=== PATIENT | male | born 1985 | race Caucasian/White ===

== ENCOUNTER 2020-02-11 01:07 | Emergency (ER) | payer BC ==
[~2020-02-11] VITALS: Ht 170.2 cm; Wt 72.6 kg
[2020-02-11 01:15] VITALS: BP 136/88
--- NOTE | 2020-02-11 01:15 | NUR ---
ED Nurse Note: Pt walked into ED from home for c/o RLQ abdominal pain onset three hours ago. Pt states pain is constant, nonradiating and is dull/pressure like in nature. Pt is aaox4, no cardiac or respiratory distress noted and ambulatory with steady gait.
[2020-02-11] MEDS ORDERED: Ketorolac 30mg Inj IV ONE (01:30)
--- NOTE | 2020-02-11 01:31 | Emergency Room Report ---
History of Present Illness General Chief Complaint: Abdominal Pain Source: Patient Present Illness HPI Is a 34-year-old male with a history of prior appendectomy. He presents with chief complaint of right flank pain. Onset for last 3 hours. Initially to the right upper back and rating down to the right lower quadrant area. No dysuria frequency. No hematuria. Comfrey nauseous and vomiting. No diarrhea. Pain is sharp in nature. 7 out of 10. Nothing made it better. Nothing made it worse. Allergies: Coded Allergies: AMOXICILLIN (Verified Allergy, Unknown, 02/11/20) PENICILLINS (Verified Allergy, Unknown, 02/11/20) Uncoded Allergies: PCN (Allergy, Unknown, 02/11/20) COVID-19 Screening Contact w/high risk pt: No Recent Travel to affected area: No Experienced COVID-19 symptoms?: No Patient History Past Medical History: see triage record, old chart reviewed Past Surgical History: appy Pertinent Family History: none Social History: Denies: smoking Immunizations: other Reviewed Nursing Documentation: PMH: Agreed; PSxH: Agreed Review of Systems Eye: Denies: eye pain, blurred vision ENT: Denies: ear pain, nose congestion, throat swelling Respiratory: Denies: cough, shortness of breath Cardiovascular: Denies: chest pain, palpitations Gastrointestinal: Reports: abdominal pain; Denies: diarrhea, nausea, vomiting Musculoskeletal: Denies: back pain, joint pain Skin: Denies: rash Neurological: Denies: headache, numbness Endocrine: Denies: increased thirst, increased urine Hematologic/Lymphatic: Denies: easy bruising All Other Systems: negative except mentioned in HPI Physical Exam Vital Signs Date Time Temp Pulse Resp B/P (MAP) Pulse Ox O2 Delivery O2 Flow Rate FiO2 02/11/20 01:12 98.1 82 18 136/88 (104) 97 Room Air Vitals normal Sp02 EP Interpretation: reviewed, normal General Appearance: well appearing, no apparent distress, alert Head: normocephalic, atraumatic Eyes: bilateral eye PERRL, bilateral eye EOMI ENT: hearing grossly normal, normal pharynx Neck: full range of motion, supple, no meningismus Respiratory: chest non-tender, lungs clear, normal breath sounds Cardiovascular #1: regular rate, rhythm, no murmur Gastrointestinal: normal bowel sounds, non tender, no mass, no organomegaly, no bruit, non-distended Musculoskeletal: back normal, normal range of motion, gait/station normal Psychiatric: mood/affect normal Medical Decision Making Diagnostic Impression: Primary Impression: Right ureteral calculus Additional Impression: ESME (acute kidney injury) ER Course Presents with right flank pain and CT scan showed a right ureteral stone. He does have evidence of ESME with elevated creatinine. Pain is well controlled here. No evidence of any infection. Will discharge home with urology follow- up. CT/MRI/US Diagnostic Results CT/MRI/US Diagnostic Results : Imaging Test Ordered: CT abdomen and pelvis Impression Read by radiologist. Mild right hydronephrosis due to a distal right ureteral stone measuring 5 mm. Last Vital Signs Date Time Temp Pulse Resp B/P (MAP) Pulse Ox O2 Delivery O2 Flow Rate FiO2 02/11/20 01:12 98.1 82 18 136/88 (104) 97 Room Air Status: improved Disposition: HOME, SELF-CARE Condition: Stable Scripts Tamsulosin HCl (Flomax) 0.4 Mg Cap.er.24h 0.4 MG ORAL DAILY, #30 CAP Prov: Bipin Ring MD 02/11/20 Hydrocodone Bit/Acetaminophen 5-325* (NORCO 5-325 TABLET*) 1 Each Tablet 1 TAB ORAL Q6H PRN for FOR PAIN, #20 TAB 0 Refills Prov: Bipin Ring MD 02/11/20 Additional Instructions: Increase fluids. Avoid carbonated drinks. Follow-up with your doctor in 7 days. You may need a referral to see a neurologist. Return if symptoms worsen. Bipin Ring MD February 11, 2020 01:31
[2020-02-11 01:54] LABS: BASOPHILS % (AUTO) 1.6 % (0.0-2.0); EOSINOPHILS % (AUTO) 1.2 % (0.0-3.0); HEMOGLOBIN 14.9 G/DL (14.2-18.0); LYMPHOCYTES % (AUTO) 31.9 % (20.0-45.0); MEAN CORPUSCULAR VOLUME 84 FL (80-99); MONOCYTES % (AUTO) 7.8 % (1.0-10.0); NEUTROPHILS % (AUTO) 57.6 % (45.0-75.0); PLATELET COUNT 206 K/UL (150-450); RED BLOOD COUNT 5.02 M/UL (4.70-6.10); RED CELL DISTRIBUTION WIDTH 10.4 % (11.6-14.8); WHITE BLOOD COUNT 7.2 K/UL (4.8-10.8)
--- NOTE | 2020-02-11 01:57 | NUR ---
ED Nurse Note: Pt taken to CT.
[2020-02-11 01:59] LABS: APPEARANCE,URINE CLEAR; BILIRUBIN, URINE NEGATIVE (NEGATIVE); GLUCOSE, URINE (UA) NEGATIVE (NEGATIVE); KETONES,URINE 1+ (NEGATIVE); LEUKOCYTE ESTERASE ,URINE 1+ (NEGATIVE); NITRITE,URINE NEGATIVE (NEGATIVE); PH,URINE 6.5 (4.5-8.0); PROTEIN,URINE 2+ (NEGATIVE); UROBILINOGEN,URINE 1 MG/DL (0.0-1.0)
[2020-02-11 02:04] LABS: ANION GAP 6 mmol/L (5-15); BLOOD UREA NITROGEN 13 mg/dL (7-18); CALCIUM 8.9 MG/DL (8.5-10.1); CARBON DIOXIDE 32 MMOL/L (21-32); CHLORIDE 103 MMOL/L (98-107); CREATININE 1.7 MG/DL (0.55-1.30); POTASSIUM 3.8 MMOL/L (3.5-5.1); SODIUM 141 MMOL/L (136-145)
--- NOTE | 2020-02-11 02:05 | NUR ---
ED Nurse Note: Pt returned from CT.
--- NOTE | 2020-02-11 02:05 | NUR ---
ED Nurse Note: Pt reports no pain at this time and states pain medicine made him feel better.
[2020-02-11 02:08] LABS: COLOR,URINE YELLOW
--- NOTE | 2020-02-11 02:14 | Diagnostic Imaging Report ---
EXAM: CT Abdomen and Pelvis Without Intravenous Contrast CLINICAL HISTORY: ABD PAIN TECHNIQUE: Axial computed tomography images of the abdomen and pelvis without intravenous contrast. CTDI is 4.5 mGy and DLP is 214.8 mGy-cm. One or more of the following dose reduction techniques were used: automated exposure control, adjustment of the mA and/or kV according to patient size, use of iterative reconstruction technique. COMPARISON: None. FINDINGS: Lung bases: Unremarkable. No mass. No consolidation. ABDOMEN: Liver: Unremarkable. Gallbladder and bile ducts: Unremarkable. No calcified stones. No ductal dilation. Pancreas: Unremarkable. No ductal dilation. Spleen: Unremarkable. No splenomegaly. Adrenals: Unremarkable. No mass. Kidneys and ureters: Mild right hydronephrosis and hydroureter due to a distal right ureteral stone measuring 5 mm. This is seen just above the right UV junction. Multiple tiny punctate stones within the lower pole of the right kidney measuring 2.4 mm. Stomach and bowel: Unremarkable. No obstruction. No mucosal thickening. PELVIS: Appendix: Distinct appendix not seen. Bladder: Unremarkable. No stones. Reproductive: Unremarkable as visualized. ABDOMEN and PELVIS: Intraperitoneal space: Unremarkable. No free air. No significant fluid collection. Bones/joints: No acute fracture. No dislocation. Soft tissues: Unremarkable. Vasculature: Unremarkable. No abdominal aortic aneurysm. Lymph nodes: Unremarkable. No enlarged lymph nodes. IMPRESSION: 1. Mild right hydronephrosis due to a distal right ureteral stone measuring 5 mm. Tiny right-sided intrarenal stones. 2. Remainder of the abdominal CT of the abdomen and pelvis unremarkable.
[2020-02-11] MEDS ORDERED: NORCO 5-325 TA1 EAC1 ORAL (02:32)
[2020-02-11] MEDS ORDERED: FLOMAX0.4 MG ORAL (02:32)
[2020-02-11 02:50] VITALS: BP 125/78
--- NOTE | 2020-02-11 02:50 | NUR ---
ER DISCHARGE NOTE: Patient is cleared to be discharged per ERMD, pt is aox4, on room air, with stable vital signs. pt was given dc and prescription instructions, pt was able to verbalize understanding, pt id band and iv site removed without complications. pt is able to ambulate with steady gait. pt took all belongings.
== END 2020-02-11 02:50 | disposition home or self-care (01) ==
LOC: EMR 01:38
DX: N13.2 Hydronephrosis with renal and ureteral calculous obstruction (principal); N17.9 Acute kidney failure, unspecified; Z88.0 Allergy status to penicillin; Z90.89 Acquired absence of other organs
CPT/HCPCS: 36415; 74176; 80048; 81003; 85025; 96361; 96374; 96375; 99284; J1885; J2405; J7030